=== PATIENT | male | born 1995 ===

== ENCOUNTER 2018-06-11 23:20 | Emergency (ER) | payer OTHER ==
[2018-06-11] MEDS ORDERED: OLANZapine 10 MG/2 ML VIAL IM ONE (23:27)
[2018-06-11] MEDS ORDERED: NS 1,000 ML IV ONE (23:27)
--- NOTE | 2018-06-11 23:30 | EDPHY ---
H & P Time Seen by Provider: 06/11/18 23:27 HPI/ROS: HPI CHIEF COMPLAINT: Mushroom ingestion HISTORY OF PRESENT ILLNESS: 22-year-old male presents emergency room by EMS after his roommates called 911. His roommates called 911 and police had to get involved as the patient is high on mushrooms. He ingested large amount mushrooms this evening. He presents emergency room very happy, intoxicated, hypervigilant. His pupils are noted to be dilated 9 mm equal. Minimally reactive to light. Denies comma ingestions. Denies alcohol. Denies opiates. Past Medical History: No no significant medical history Past Surgical History: Recent right knee surgery Social History: Mushrooms this evening. Family History: Noncontributory ROS REVIEW OF SYSTEMS: 10 Systems were reviewed and negative with the exception of the elements mentioned in the history of present illness. Exam Constitutional intoxicated, hypervigilant, somewhat excited, happy, triage nursing summary reviewed, vital signs reviewed, awake/alert. Eyes normal conjunctivae and sclera, EOMI, 9 mm dilated minimally reactive to light. HENT normal inspection, atraumatic, moist mucus membranes, no epistaxis, neck supple/ no meningismus, no raccoon eyes. Respiratory clear to auscultation bilaterally, normal breath sounds, no respiratory distress, no wheezing. Cardiovascular rate normal, regular rhythm, no murmur, no edema, distal pulses normal. Gastrointestinal soft, non-tender, no rebound, no guarding, normal bowel sounds, no distension, no pulsatile mass. Genitourinary no CVA tenderness. Musculoskeletal no midline vertebral tenderness, full range of motion, no calf swelling, no tenderness of extremities, no meningismus, good pulses, neurovascularly intact. Skin pink, warm, & dry, no rash, skin atraumatic. Neurologic awake, alert and oriented x 3, AAOx3, moves all 4 extremities equally, motor intact, sensory intact, CN II-XII intact, normal cerebellar, normal vision, normal speech. Psychiatric hypervigilant and happy. Heme/Lymph/Immune no lymphadenopathy. Differential Diagnosis: Includes but is not limited to in a particular order drug intoxication, alcohol intoxication, mushroom ingestion, LSD ingestion, dehydration, electrolyte disturbance, rhabdomyolysis. Medical Decision Making: Plan for this patient IM Zyprexa 10 mg as he is somewhat excited hypervigilant, intoxicated here. Check basic blood work, urine drug screen when able. Once patient is appropriately sober he can be safely discharged from the emergency room. Re-evaluation: 0210: Patient alert, oriented., cooperative. Ambulatory throughout the emergency room without a stable gait with no complaints. He is safe and stable with stable vital signs for discharge to the [facility]. 0445: Patient ambulatory. Sober. Answers questions appropriately admits to doing large amount of mushrooms. Patient clinically sober stable vital signs. Stable gait. Safe for discharge. Source: Patient, EMS Constitutional: Initial Vital Signs Temperature (C) 36.6 C 06/11/18 23:20 Heart Rate 90 06/11/18 23:20 Respiratory Rate 20 06/11/18 23:20 Blood Pressure 113/95 H 06/11/18 23:20 O2 Sat (%) 97 06/11/18 23:20 O2 Delivery Mode Room Air Allergies/Adverse Reactions: Unable to Assess Allergy (Unverified 06/11/18 23:34) Home Medications: Medication Instructions Recorded Unobtainable 06/11/18 Medical Decision Making - Data Points Laboratory Results: Laboratory Results 06/12/18 00:00 06/12/18 00:00 06/12/18 06/12/18 06/12/18 01:10 00:00 00:00 WBC 11.22 10^3/uL H 10^3/uL (3.80-9.50) RBC 4.90 10^6/uL 10^6/uL (4.40-6.38) Hgb 14.4 g/dL g/dL (13.7-17.5) Hct 40.9 % % (40.0-51.0) MCV 83.5 fL fL (81.5-99.8) MCH 29.4 pg pg (27.9-34.1) MCHC 35.2 g/dL g/dL (32.4-36.7) RDW 12.0 % % (11.5-15.2) Plt Count 225 10^3/uL 10^3/uL (150-400) MPV 9.7 fL fL (8.7-11.7) Neut % (Auto) 88.8 % H % (39.3-74.2) Lymph % (Auto) 7.7 % L % (15.0-45.0) [place]ois % (Auto) 2.8 % L % (4.5-13.0) Eos % (Auto) 0.0 % L % (0.6-7.6) Baso % (Auto) 0.3 % % (0.3-1.7) Nucleat RBC Rel Count 0.0 % % (0.0-0.2) Absolute Neuts (auto) 9.98 10^3/uL H 10^3/uL (1.70-6.50) Absolute Lymphs (auto) 0.86 10^3/uL L 10^3/uL (1.00-3.00) Absolute Monos (auto) 0.31 10^3/uL 10^3/uL (0.30-0.80) Absolute Eos (auto) 0.00 10^3/uL L 10^3/uL (0.03-0.40) Absolute Basos (auto) 0.03 10^3/uL 10^3/uL (0.02-0.10) Absolute Nucleated RBC 0.00 10^3/uL 10^3/uL (0-0.01) Immature Gran % 0.4 % % (0.0-1.1) Immature Gran # 0.04 10^3/uL 10^3/uL (0.00-0.10) Sodium 138 mEq/L mEq/L (135-145) Potassium 3.8 mEq/L mEq/L (3.3-5.0) Chloride 103 mEq/L mEq/L (97-110) Carbon Dioxide 22 mEq/l mEq/l (22-31) Anion Gap 13 mEq/L mEq/L (6-14) BUN 9 mg/dL mg/dL (7-23) Creatinine 0.8 mg/dL mg/dL (0.7-1.3) Estimated GFR > 60 Glucose 102 mg/dL H mg/dL (70-100) Calcium 9.7 mg/dL mg/dL (8.5-10.4) Urine Opiates Screen NEGATIVE (NEGATIVE) Urine Barbiturates NEGATIVE (NEGATIVE) Ur Phencyclidine Scrn NEGATIVE (NEGATIVE) Ur Amphetamine Screen NEGATIVE (NEGATIVE) U Benzodiazepines Scrn NEGATIVE (NEGATIVE) Urine Cocaine Screen NEGATIVE (NEGATIVE) U Marijuana (THC) Screen NEGATIVE (NEGATIVE) Ethyl Alcohol < 10 mg/dL mg/dL (0-10) Medications Given: Discontinued Medications Sodium Chloride (Ns) 1,000 mls @ 0 mls/hr IV ONCE ONE PRN Reason: Wide Open Stop: 06/11/18 23:28 Last Admin: 06/11/18 23:42 Dose: 1,000 mls Olanzapine (Zyprexa Injection) 10 mg IM EDNOW ONE Stop: 06/11/18 23:28 Last Admin: 06/11/18 23:42 Dose: 10 mg Departure - Departure Disposition: Home, Routine, Self-Care Clinical Impression: Toxic effect of ingested mushroom Qualifiers: Encounter type: initial encounter Injury intent: accidental or unintentional Qualified Code(s): T62.0X1A - Toxic effect of ingested mushrooms, accidental ( unintentional), initial encounter Condition: Good Instructions: Polysubstance Abuse (ED) Referrals: Patient,NotPresent [Primary Care Provider] - As per Instructions
[2018-06-12 00:06] LABS: PLATELET COUNT 225 10^3/uL (150-400)
[2018-06-12 04:49] VITALS: BP 127/75
== END 2018-06-12 04:49 | disposition home or self-care (01) ==
DX: F16.129 Hallucinogen abuse with intoxication, unspecified (principal)
CPT/HCPCS: 80305; G0480